=== PATIENT | male | born 1995 | race Hispanic/Latino ===

== ENCOUNTER 2021-05-30 19:58 | Emergency (ER) | payer SELFPAY ==
[2021-05-30] MEDS ORDERED: NA CHLORIDE 0.9% 2,000 ML ONE (20:29)
[2021-05-30] MEDS ORDERED: LORazepam 2 MG/ML VIAL ONE (20:52)
[2021-05-30 20:55] LABS: Absolute Lymphocytes (CBC) 1.7 K/uL (0.7-4.9); Hematocrit 45.1 % (39.6-49.0); Lymphocytes % 11.8 % (15.3-44.8); MPV 9.2 fL (7.6-11.3); RBC Red Blood Cell Count 5.62 M/uL (4.33-5.43)
--- NOTE | 2021-05-30 21:07 | RAD REPORT ---
EXAM DESCRIPTION: RAD - Chest Single View - 05/30/2021 8:53 pm CLINICAL HISTORY: DYSPNEA COMPARISON: No comparisons FINDINGS: Lines: None. Lungs: No evidence of edema or pneumonia. Pleural: No significant pleural effusions or pneumothorax. Cardiac: The heart size is within normal limits. Bones: No acute fractures. Other: IMPRESSION: No acute cardiopulmonary disease.
[2021-05-30 21:13] LABS: Albumin 4.3 g/dL (3.4-5.0); Bilirubin Direct 0.2 mg/dL (0-0.2); Potassium 4.2 mmol/L (3.5-5.1); Protein, Total 8.8 g/dL (6.4-8.2)
[2021-05-30 21:33] LABS: Barbiturates NEGATIVE (NEGATIVE); Benzodiazepines NEGATIVE (NEGATIVE); Cocaine NEGATIVE (NEGATIVE); METHAMPHETAM NEGATIVE (NEGATIVE); Methadone NEGATIVE (NEGATIVE); Opiates NEGATIVE (NEGATIVE); Phencyclidine NEGATIVE (NEGATIVE); THC Cannibis NEGATIVE (NEGATIVE)
[2021-05-30 21:58] LABS: SARS-COV-2 RT PCR NEGATIVE (NEGATIVE)
--- NOTE | 2021-05-30 23:58 | ER ---
Nurse's Notes [facility] Name: Kobe Egan Jr Age: 26 yrs Sex: Male : 1995 Arrival Date: 05/30/2021 Time: 20:01 Bed 6 Private MD: Diagnosis: Abdominal pain. Enterocollitis. Hyperventilating episode Presentation: 05/30 20:10 Chief complaint: Patient states: Upon arrival pt c/o SOB - SpO2 100%. Pt c/o pain all ld1 over, ABD pain, JENELLE leg pain. Pt states pain began 1630 today. Pt stating pain is getting worse, feeling dizzy. Coronavirus screen: At this time, the client does not indicate any symptoms associated with coronavirus-19. Ebola Screen: No symptoms or risks identified at this time. Initial Sepsis Screen: Does the patient meet any 2 criteria? No. Patient's initial sepsis screen is negative. Does the patient have a suspected source of infection? No. Patient's initial sepsis screen is negative. Risk Assessment: Do you want to hurt yourself or someone else? Patient reports no desire to harm self or others. Onset of symptoms was May 30, 2021. 20:10 Method Of Arrival: Wheelchair ld1 20:10 Acuity: JOSE 3 ld1 Triage Assessment: 20:12 General: Appears in no apparent distress. uncomfortable, Behavior is cooperative, ld1 anxious, crying, fussy. Pain: Complains of pain in All over. Pt grabbing ABD and Left lower leg. Neuro: Level of Consciousness is awake, alert, obeys commands, Oriented to person, place, time, situation. Respiratory: Reports shortness of breath at rest Airway is patent Respiratory effort is even, unlabored, Respiratory pattern is regular, symmetrical, Onset: The symptoms/episode began/occurred gradually, the patient has moderate shortness of breath. Historical: - Allergies: 20:12 No Known Allergies; ld1 - Home Meds: 20:12 None [Active]; ld1 - PMHx: 20:12 None; ld1 - PSHx: 20:12 None; ld1 - Immunization history:: Adult Immunizations up to date, Client reports receiving the 1st dose of the Covid vaccine. - Social history:: Smoking status: Patient denies any tobacco usage or history of. Patient/guardian denies using alcohol. Screenin:21 Abuse screen: Denies threats or abuse. Denies injuries from another. Nutritional tw5 screening: No deficits noted. Tuberculosis screening: No symptoms or risk factors identified. Fall Risk IV access (20 points). Assessment: 20:21 General: Reports fatigue for. General: Appears uncomfortable, Behavior is cooperative, tw5 appropriate for age, anxious, He states he started to feel bad around 4:30 in the afternoon. He went to lay down but the he just started to feel worse. Cardiovascular: Heart tones S1 S2 present Capillary refill < 3 seconds is brisk in bilateral fingers. Respiratory: Airway is patent Trachea midline Respiratory pattern is tachypnea Breath sounds are clear bilaterally. GI: Reports nausea, Pain is 7 out of 10 on a pain scale. vomiting, vomited just once a couple of hours ago. 20:21 Cardiovascular: Rhythm is sinus tachycardia. Respiratory: Respiratory effort is even. tw5 21:12 Reassessment: Patient appears in no apparent distress at this time. : Urine is clear. tw5 22:35 Reassessment: No changes from previously documented assessment. Patient and/or family mk updated on plan of care and expected duration. Pain level reassessed. Patient is alert, oriented x 3, equal unlabored respirations, skin warm/dry/pink. 23:40 Reassessment: No changes from previously documented assessment. Patient and/or family mk updated on plan of care and expected duration. Pain level reassessed. Patient is alert, oriented x 3, equal unlabored respirations, skin warm/dry/pink. 05/31 00:39 Reassessment: No changes from previously documented assessment. Patient and/or family mk updated on plan of care and expected duration. Pain level reassessed. Patient is alert, oriented x 3, equal unlabored respirations, skin warm/dry/pink. Vital Signs: 05/30 20:10 BP 132 / 59; Pulse 135; Resp 26; Temp 99.1(TE); Pulse Ox 100% on R/A; Weight 90.72 kg; ld1 Height 5 ft. 8 in. (172.72 cm); Pain 10/10; 20:21 BP 116 / 58; Pulse 107; Resp 24; Pulse Ox 100% on R/A; tw5 21:12 BP 104 / 67; Pulse 99; Resp 24; Pulse Ox 100% ; tw5 23:17 BP 109 / 58; Pulse 86; Resp 16; Pulse Ox 96% ; st1 05/31 00:10 BP 118 / 69; Pulse 97; Resp 16; Pulse Ox 99% on R/A; st1 00:40 BP 115 / 74; Pulse 87; Resp 18; Temp 98.4; Pulse Ox 98% on R/A; mk 05/30 20:10 Body Mass Index 30.41 (90.72 kg, 172.72 cm) ld1 Contreras Coma Score: 05/30 21:12 Eye Response: spontaneous(4). Verbal Response: oriented(5). Motor Response: obeys mk commands(6). Total: 15. 23:17 Eye Response: spontaneous(4). Verbal Response: oriented(5). Motor Response: obeys mk commands(6). Total: 15. 05/31 00:11 Eye Response: spontaneous(4). Verbal Response: oriented(5). Motor Response: obeys mk commands(6). Total: 15. 00:40 Eye Response: spontaneous(4). Verbal Response: oriented(5). Motor Response: obeys mk commands(6). Total: 15. ED Course: 05/30 20:01 Patient arrived in ED. es 20:12 Triage completed. ld1 20:12 Arm band placed on right wrist. ld1 20:15 Jj Sanchez MD is Attending Physician. pkl 20:21 Arlyn Sharma is Primary Nurse. tw5 20:21 Patient has correct armband on for positive identification. Placed in gown. Bed in low tw5 position. Call light in reach. Side rails up X 1. leather crafter on. Pulse ox on. NIBP on. Door closed. Noise minimized. Moved to private room. Warm blanket given. Verbal reassurance given. 20:21 COVID swab sent to lab. tw5 20:41 Basic Metabolic Panel Sent. tw5 20:41 CBC with Diff Sent. tw5 20:41 Hepatic Function Sent. tw5 20:41 Lipase Sent. tw5 20:41 UDS Sent. tw5 20:41 D-Dimer Sent. tw5 20:42 Inserted saline lock: 20 gauge in right antecubital area, using aseptic technique. tw5 Blood collected. 20:52 XRAY CXR (1 view) In Process Unspecified. EDMS 20:52 COVID-19/FLU A+B (Document "Date of Onset" if Symptomatic): SOB, Abd. pain Sent. tw5 20:56 Assisted to bathroom. tw5 21:14 D-Dimer Sent. tw5 21:14 Urine collected: clean catch specimen, clear. tw5 22:08 CT Chest For PE Angio Sent. st1 22:08 CT Abd/Pelvis - IV Contrast Only Sent. st1 22:29 CT Abd/Pelvis - IV Contrast Only In Process Unspecified. EDMS 22:29 CT Chest For PE Angio In Process Unspecified. EDMS 23:47 the patient was able to ambulate without difficulty to the bathroom for a bowel st1 movement. 05/31 00:39 No provider procedures requiring assistance completed. IV discontinued, intact, mk bleeding controlled, No redness/swelling at site. Pressure dressing applied. Administered Medications: 05/30 20:41 Drug: NS 0.9% 1000 ml Route: IV; Rate: 1000 ml; Site: right antecubital; tw5 20:41 Drug: NS 0.9% 1000 ml Route: IV; Rate: 125 ml/hr; Site: right antecubital; tw5 20:55 Drug: Ativan (LORazepam) 0.5 mg Route: IVP; Site: right antecubital; tw5 21:14 Follow up: Response: No adverse reaction; Anxiety decreased; RASS: Alert and Calm (0) tw5 05/31 00:01 Drug: Cipro (ciprofloxacin) 500 mg Route: PO; st1 00:01 Drug: LoMOTIL (diphenoxylate-atropine) 2 tabs Route: PO; st1 Outcome: 05/30 23:58 Discharge ordered by . mahesh 05/31 00:39 Discharged to home with family. mk Condition: good Discharge instructions given to patient, family. 00:44 Patient left the ED. mk Signatures: Dispatcher [employer] Jj Camacho MD MD pkl Salyer, Edna es Dibbern, Lauren, RN RN ld1 Aryln Sharma tw5 Nunu Hyde RN RN Jayashree Martin RN RN st1
[2021-05-30] MEDS ORDERED: CIPROFLOXACIN HCL 500 MG TAB ONE (23:59)
--- NOTE | 2021-05-30 23:59 | EDPHYS ---
Physician Documentation [facility] Name: Kobe Egan Jr Age: 26 yrs Sex: Male : 1995 Arrival Date: 05/30/2021 Time: 20:01 Bed 6 Private MD: ED Physician jJ Sanchez HPI: 05/30 20:27 This 26 yrs old Male presents to ER via Wheelchair with complaints of pkl Breathing Difficulty, Dizziness, Abdominal Pain, Headache, Numbness. 20:27 The patient has shortness of breath at rest. Onset: The symptoms/episode began/occurred pkl just prior to arrival, 3 hour(s) ago. Associated signs and symptoms: Pertinent positives: dizziness, abdominal pain, body aches . Historical: - Allergies: 20:12 No Known Allergies; ld1 - Home Meds: 20:12 None [Active]; ld1 - PMHx: 20:12 None; ld1 - PSHx: 20:12 None; ld1 - Immunization history:: Adult Immunizations up to date, Client reports receiving the 1st dose of the Covid vaccine. - Social history:: Smoking status: Patient denies any tobacco usage or history of. Patient/guardian denies using alcohol. ROS: 20:27 Eyes: Negative for injury, pain, redness, and discharge, ENT: Negative for injury, pkl pain, and discharge, Neck: Negative for injury, pain, and swelling, Cardiovascular: Negative for chest pain, palpitations, and edema. 20:27 Respiratory: Positive for shortness of breath, at rest. 20:27 Abdomen/GI: Positive for abdominal pain, of the right upper quadrant, left upper quadrant, right lower quadrant and left lower quadrant. 20:27 Back: Negative for acute changes. 20:27 : Negative for urinary symptoms. 20:27 MS/extremity: Negative for acute changes. 20:27 Skin: Negative for rash. 20:27 Neuro: Negative for altered mental status, loss of consciousness. Exam: 20:27 Head/Face: Normocephalic, atraumatic. Eyes: Pupils equal round and reactive to light, pkl extra-ocular motions intact. Lids and lashes normal. Conjunctiva and sclera are non-icteric and not injected. Cornea within normal limits. Periorbital areas with no swelling, redness, or edema. ENT: Nares patent. No nasal discharge, no septal abnormalities noted. Tympanic membranes are normal and external auditory canals are clear. Oropharynx with no redness, swelling, or masses, exudates, or evidence of obstruction, uvula midline. Mucous membranes moist. Neck: Trachea midline, no thyromegaly or masses palpated, and no cervical lymphadenopathy. Supple, full range of motion without nuchal rigidity, or vertebral point tenderness. No Meningismus. Chest/axilla: Normal chest wall appearance and motion. Nontender with no deformity. No lesions are appreciated. Cardiovascular: Regular rate and rhythm with a normal S1 and S2. No gallops, murmurs, or rubs. Normal PMI, no JVD. No pulse deficits. 20:27 Respiratory: Breath sounds: are clear throughout, Patient hyperventilating.. 20:27 Abdomen/GI: Bowel sounds: normal, Palpation: soft, nontender, in all quadrants. 20:27 Back: Exam negative for acute changes. 20:27 : Exam negative for acute changes. 20:27 Musculoskeletal/extremity: Exam is negative for acute changes. 20:27 Skin: Exam negative for rash. 20:27 Neuro: Orientation: is normal, Cranial nerves: grossly normal, Motor: is normal. Vital Signs: 20:10 BP 132 / 59; Pulse 135; Resp 26; Temp 99.1(TE); Pulse Ox 100% on R/A; Weight 90.72 kg; ld1 Height 5 ft. 8 in. (172.72 cm); Pain 10/10; 20:21 BP 116 / 58; Pulse 107; Resp 24; Pulse Ox 100% on R/A; tw5 21:12 BP 104 / 67; Pulse 99; Resp 24; Pulse Ox 100% ; tw5 23:17 BP 109 / 58; Pulse 86; Resp 16; Pulse Ox 96% ; st1 05/31 00:10 BP 118 / 69; Pulse 97; Resp 16; Pulse Ox 99% on R/A; st1 00:40 BP 115 / 74; Pulse 87; Resp 18; Temp 98.4; Pulse Ox 98% on R/A; mk 05/30 20:10 Body Mass Index 30.41 (90.72 kg, 172.72 cm) ld1 [place] Coma Score: 05/30 21:12 Eye Response: spontaneous(4). Verbal Response: oriented(5). Motor Response: obeys mk commands(6). Total: 15. 23:17 Eye Response: spontaneous(4). Verbal Response: oriented(5). Motor Response: obeys mk commands(6). Total: 15. 05/31 00:11 Eye Response: spontaneous(4). Verbal Response: oriented(5). Motor Response: obeys mk commands(6). Total: 15. 00:40 Eye Response: spontaneous(4). Verbal Response: oriented(5). Motor Response: obeys mk commands(6). Total: 15. MDM: 05/30 20:15 Patient medically screened. pkl 23:53 Data reviewed: vital signs, nurses notes, lab test result(s), radiologic studies, CT pkl scan. ED course: Patient feeling better. Discussed lab and imaging studies with patient and mother in law. Advised to follow up with PCP in 2 to 3 days. To return if necessary. Patient and mother in law understood instructions. 05/30 20:23 Order name: Basic Metabolic Panel; Complete Time: 21:45 pkl 05/30 20:23 Order name: CBC with Diff; Complete Time: 21:45 pkl 05/30 20:23 Order name: Hepatic Function; Complete Time: 21:45 pkl 05/30 20:23 Order name: Lipase; Complete Time: 21:45 pkl 05/30 20:23 Order name: D-Dimer; Complete Time: 21:45 pkl 05/30 20:23 Order name: UDS; Complete Time: 21:45 pkl 05/30 20:26 Order name: COVID-19/FLU A+B (Document "Date of Onset" if Symptomatic): SOB, Abd. pain; pkl Complete Time: 22:06 05/30 20:26 Order name: XRAY CXR (1 view); Complete Time: 21:45 pkl 05/30 21:47 Order name: CT Abd/Pelvis - IV Contrast Only pkl 05/30 21:47 Order name: CT Chest For PE Angio pkl 05/30 20:23 Order name: IV Saline Lock; Complete Time: 20:41 pkl 05/30 20:23 Order name: Labs collected and sent; Complete Time: 20:41 pkl Administered Medications: 20:41 Drug: NS 0.9% 1000 ml Route: IV; Rate: 1000 ml; Site: right antecubital; tw5 20:41 Drug: NS 0.9% 1000 ml Route: IV; Rate: 125 ml/hr; Site: right antecubital; tw5 20:55 Drug: Ativan (LORazepam) 0.5 mg Route: IVP; Site: right antecubital; tw5 21:14 Follow up: Response: No adverse reaction; Anxiety decreased; RASS: Alert and Calm (0) tw5 05/31 00:01 Drug: Cipro (ciprofloxacin) 500 mg Route: PO; st1 00:01 Drug: LoMOTIL (diphenoxylate-atropine) 2 tabs Route: PO; st1 Disposition Summary: 05/30/21 23:58 Discharge Ordered Location: Home pkl Problem: new pkl Symptoms: have improved pkl Condition: Stable pkl Diagnosis - Abdominal pain. Enterocollitis. Hyperventilating episode pkl Followup: pkl - With: Private Physician - When: 2 - 3 days - Reason: Re-evaluation by your physician Discharge Instructions: - Discharge Summary Sheet pkl Forms: - Medication Reconciliation Form pkl - Work release form pkl - Thank You Letter pkl - Antibiotic Education pkl - Prescription Opioid Use pkl Prescriptions: - Zofran 4 mg Oral Tablet - take 1 tablet by ORAL route every 12 hours As needed; 6 tablet; Refills: 0, pkl Product Selection Permitted - Cipro 500 mg Oral Tablet - take 1 tablet by ORAL route every 12 hours for 7 days; 10 tablet; Refills: 0, pkl Product Selection Permitted - Lomotil 2.5-0.025 mg Oral Tablet - take 2 tablets by ORAL route once daily As needed; 6 tablet; Refills: 0, pkl Product Selection Permitted Signatures: Dispatcher [employer] Jj Camacho MD MD pkl Sandy Oquendo RN RN [email or web address] Arlyn Sharma tw5 Jayashree Osullivan RN RN st1
[2021-05-31] MEDS ORDERED: DIPHENOX/ATROP SULF 1 TAB PO ONE
--- NOTE | 2021-05-31 14:07 | RAD REPORT ---
EXAM DESCRIPTION: CT - Abdomen Pelvis W Contrast - 05/31/2021 3:08 am CLINICAL HISTORY: 26 years Male ABD PAIN TECHNIQUE: Contiguous axial images obtained through the abdomen and pelvis following intravenous con trast administration. Coronal and sagittal reformatted images provided. This CT exam was performed according to our departmental dose-optimization program, which includes on e or more of the following dose reduction techniques: automated exposure control, adjustment of the m A and/or kV according to patient size, and/or use of iterative reconstruction technique. COMPARISON: No prior exams provided for comparison. FINDINGS: The lung bases, liver, biliary tree, gallbladder, pancreas, spleen, adrenal glands, kidney s, urinary bladder, and osseous structures are normal. The bowel is fluid-filled, a nonspecific finding which can be seen in mild enterocolitis. No bowel wa ll thickening, obstruction, pneumatosis, free intraperitoneal air, or ascites. Normal appendix. Small fat-containing umbilical hernia. Shotty bilateral inguinal lymph nodes, nonspecific. IMPRESSION: Fluid-filled bowel, a nonspecific finding which can be seen in mild enterocolitis. No ot her acute findings. Electronically signed by: Rachelle Zee MD 05/30/2021 10:40 PM MACHINIST GENERAL Due to temporary technical issues with the PACS/Fluency reporting system, reports are being signed by the in house radiologist without review as a courtesy to ensure prompt reporting. The interpreting r adiologist is fully responsible for the content of the report.
--- NOTE | 2021-05-31 14:09 | RAD REPORT ---
EXAM DESCRIPTION: CT - Chest For Pe Angio - 05/31/2021 3:08 am CLINICAL HISTORY: 26 years Male DYSPNEA TECHNIQUE: Contiguous axial images obtained through the chest were obtained from the thoracic inlet to the level of the upper abdomen during the pulmonary arterial phase of intravenous contrast adminis tration. Coronal and sagittal reformatted and multiplanar MIP images provided. This CT exam was performed according to our departmental dose-optimization program, which includes on e or more of the following dose reduction techniques: automated exposure control, adjustment of the m A and/or kV according to patient size, and/or use of iterative reconstruction technique. COMPARISON: No prior exams provided for comparison. FINDINGS: There is no large central pulmonary embolus. Cannot exclude small pulmonary emboli due to patient motion and suboptimal contrast opacification. The thoracic aorta is normal without aneurysm or dissection. The heart is normal in size without gilles cardial effusion. The lungs are clear without consolidation, effusion, or pneumothorax. No lymphadenopathy in the chest . There are no visualized acute osseous or upper abdominal abnormalities. IMPRESSION: Cannot exclude small pulmonary emboli due to patient motion and suboptimal contrast opac ification of the pulmonary arteries. No visualized acute abnormality in the chest. Electronically signed by: Rachelle Zee MD 05/30/2021 10:52 PM SYSTEM SAFETY MANAGER Due to temporary technical issues with the PACS/Fluency reporting system, reports are being signed by the in house radiologist without review as a courtesy to ensure prompt reporting. The interpreting r adiologist is fully responsible for the content of the report.
[2021-05-31 17:59] VITALS: BP 115/74; TEMP 98.4; O2SAT 98
== END 2021-05-31 00:44 | disposition home or self-care (01) ==
LOC: ER 19:58
DX: R06.4 Hyperventilation (principal); K52.9 Noninfective gastroenteritis and colitis, unspecified; R10.9 Unspecified abdominal pain; Z20.822 Contact with and (suspected) exposure to COVID-19
CPT/HCPCS: 0240U; 36415; 71045; 71275; 74177; 80048; 80076; 80307; 83690; 85025; 85379; 96374; 99284; J7030; Q9967